=== PATIENT | male | born 1945 | race Caucasian/White ===

== ENCOUNTER 2021-04-11 12:57 | Observation (INO) ==
[2021-04-12] MEDS: Furosemide 20 MG TABLET PO SCH (07:36)
[2021-04-12] MEDS ORDERED: Lidocaine -MPF 2% 5 ML VIAL ONE (07:52)
[2021-04-12] MEDS ORDERED: EPHEDrine 50 MG/ML VIAL ONE (08:13)
[2021-04-12] MEDS ORDERED: *HR* Propofol 200 MG/20 ML VIAL IVP ONE ×4 (08:35→09:49)
[2021-04-12] MEDS ORDERED: *HR* EPINEPHrine 1 MG/10 ML SYRINGE INTRATRACH PRN (10:28)
[2021-04-12 14:09] LABS: INR 1.2; Prothrombin Time 13.1 Seconds (9.4-12.1)
[2021-04-12 14:28] LABS: Alanine Aminotransferase 8 Units/L (7-52); Albumin 3.5 g/dL (3.5-5.7); Albumin/Globulin Ratio 1.4 (1.1-2.2); Alkaline Phosphatase 38 Units/L (34-104); Aspartate Amino Transferase 12 Units/L (13-39); BUN/Creatinine Ratio 21 (6-26); Bilirubin,Total 1.1 mg/dL (0.3-1.0); Blood Urea Nitrogen 15 mg/dL (8-23); Calcium 8.4 mg/dL (8.6-10.3); Carbon Dioxide 23 mEq/L (23-29); Chloride 104 mEq/L (98-107); Globulin 2.5 g/dL (2.4-3.5); Glucose 107 mg/dL (70-105); Osmolality,Calculated 273 (280-300); Potassium 3.7 mEq/L (3.5-5.1); Sodium 131 mEq/L (136-145); eGFR For African Americans > 60 (> 60); eGFR For Non-African Americans > 60 (> 60)
[2021-04-12 14:31] LABS: Hematocrit 35.3 % (37.5-50.1); Immature Platelets 8.6 % (1.1-6.1); Mean Corpuscular Hemoglobin 31.7 pg (28.0-33.3); Mean Corpuscular Volume 93.1 fL (83.0-100.0); Red Blood Count 3.79 M/mcL (4.19-5.50); Red Cell Distribution Width 13.9 % (11.5-14.5); White Blood Count 6.9 K/mcL (4.3-11.1)
[2021-04-12] MEDS ORDERED: Acetaminophen 325 MG TABLET PO PRN (22:52)
[2021-04-13] MEDS: Furosemide 20 MG TABLET PO SCH (08:25)
[2021-04-13 10:59] VITALS: BP 117/56; PULSE 72; TEMP 97.9; O2SAT 97
== END 2021-04-13 12:00 | disposition home or self-care (01) ==
LOC: 3BNU → EDSTATUS 04-12 08:00
PROVIDERS: ADMIT Internal Medicine Gastroenterology; ATTEND Internal Medicine Gastroenterology